=== PATIENT | female | born 1940 | race Caucasian/White ===

== ENCOUNTER → 2017-05-27 | Outpatient (CLI) | payer MEDICARE, BC ==
[~2017-05-27] MED LIST: ASPIRIN81 M2 PO; BACTRIM DS TAB1 EACH PO; BIOTENE1000 ML PO; CALCIUM 500 +1 EAC5 PO; FISH OIL 1,001000 M2 PO; FOSINOPRIL SODI40 M1 PO; HYDROCODONE-AP1 EAC6 PO; LEVOTHYROXINE100 MC1 PO; MAGNESIUM250 MG PO; PREDNISONE 5 MG5 M1 PO; SORINE 80 MG TA80 M1 PO; URSODIOL300 MG PO; VITAMIN D1000 UNI1 PO; VITAMIN E400 UNIT PO
== END ==
LOC: M.RAD 14:08
DX: R05 Cough (principal); Z95.0 Presence of cardiac pacemaker

== ENCOUNTER 2017-08-25 16:35 | Emergency (ER) | payer MEDICARE, BC ==
[~2017-08-25] VITALS: Ht 157.5 cm; Wt 64.4 kg
[2017-08-25] MEDS ORDERED: ASPIRIN81 M2 PO (16:58)
[2017-08-25] MEDS ORDERED: SORINE 80 MG TA80 M1 PO (16:58)
[2017-08-25] MEDS ORDERED: FOSINOPRIL SODI40 M1 PO (16:58)
[2017-08-25] MEDS ORDERED: LEVOTHYROXINE100 MC1 PO (16:59)
[2017-08-25] MEDS ORDERED: FISH OIL 1,001000 M2 PO (16:59)
[2017-08-25] MEDS ORDERED: VITAMIN D1000 UNI1 PO (17:00)
[2017-08-25] MEDS ORDERED: PREDNISONE 5 MG5 M1 PO (17:00)
[2017-08-25] MEDS ORDERED: URSODIOL300 MG PO (17:00)
[2017-08-25] MEDS ORDERED: MAGNESIUM250 MG PO (17:01)
[2017-08-25] MEDS ORDERED: BIOTENE1000 ML PO (17:01)
[2017-08-25] MEDS ORDERED: VITAMIN E400 UNIT PO (17:01)
[2017-08-25] MEDS ORDERED: CALCIUM 500 +1 EAC5 PO (17:02)
[2017-08-25] MEDS ORDERED: HYDROCODONE-AP1 EAC6 PO (17:02)
[2017-08-25 17:37] LABS: URINE BILIRUBIN NEGATIVE (Negative); URINE BLOOD 1+ (Negative); URINE CLARITY CLOUDY; URINE COLOR YELLOW; URINE GLUCOSE-RANDOM NEGATIVE (Negative); URINE KETONES NEGATIVE (Negative); URINE PROTEIN 2+ (Negative); URINE UROBILINOGEN 0.2 E.U./dl (0.2-1.0)
[2017-08-25 17:47] LABS: URINE LEUKOCYTES-REFLEX 3+ (Negative); URINE NITRITE-REFLEX POSITIVE (Negative)
[2017-08-25] MEDS ORDERED: BACTRIM DS TAB1 EACH PO (17:54)
[2017-08-25 17:59] LABS: CASTS None Seen /LPF (None Seen); CRYSTALS None Seen /LPF (None Seen); SQUAMOUS 4-10 Moderate /LPF (0-3); URINE WBC-REFLEX >25 Many /HPF (0-5)
[2017-08-25 18:00] LABS: BACTERIA-REFLEX >30 Many /HPF (None Seen); MUCUS None Seen strn/LPF (None Seen); WBC CLUMPS Few (None Seen)
[2017-08-25 18:03] VITALS: BP 141/72
[2017-08-25 18:03] LABS: URINE RBC 0-2 Rare /HPF (0-2)
== END 2017-08-25 18:07 | disposition home or self-care (01) ==
LOC: M.ERS 16:35
PROVIDERS: Physician Assistant
DX: N39.0 Urinary tract infection, site not specified (principal); I10 Essential (primary) hypertension; E03.9 Hypothyroidism, unspecified; M32.9 Systemic lupus erythematosus, unspecified; E11.9 Type 2 diabetes mellitus without complications; Z88.1 Allergy status to other antibiotic agents; Z88.8 Allergy status to other drugs, medicaments and biological substances; Z88.6 Allergy status to analgesic agent